=== PATIENT | female | born 1975 | race African-American/Black ===

== ENCOUNTER → 2016-11-28 | Outpatient (CLI) | payer OTHER ==
[~2016-11-28] VITALS: Ht 162.6 cm; Wt 141.5 kg
[~2016-11-28] MED LIST: BIOT1000 PO; BUPR1TAB29 PO; CHLORHEXIDINE GLUCONATE 2 % 1 PACK (2 CLOTHS) TOPICAL PRN; CHOL5000 PO; FISH1000 PO; FLUT1SPR22 EACH NARE; FLUT50SP EACH NARE; IBUP-232 PO; INSULIN HUMAN REGULAR 1,000 UNITS/10 ML VIAL SQ PRN; LACTATED RINGER'S 1000 ML IV PRN; METOPROLOL TARTRATE 25 MG TAB PO PRN; MULT1TAB84 PO; MULTTAB67 PO; NAPR500T PO; OXYC-360 PO; POLYDRO3 PO; POVIDONE IODINE 5% (ANTISEPSIS KIT) 4 APPLICATIONS EACH NARE PRN; PROPOFOL 200 MG/20 ML AMP IV ONE; SODIUM CHLORID 0.9% 500 ML IV PRN; VITA10004 SL; VITA250T3 PO; VITA500030 CHEW; VITA500C9 CHEW; Z.0.BCPILL PO
[2016-11-28 08:23] VITALS: BP 139/77; PULSE 71; RESP 20; TEMP 98.2; O2SAT 98
[2016-11-28 10:25] VITALS: TEMP 98.4
--- NOTE | 2016-11-28 10:36 | GIPROC ---
[facility] [address] [facility]. [facility], [id number] EGD PROCEDURE REPORT EXAM DATE: 11/28/2016 PATIENT NAME: Citlali Page MR #: [id number] BIRTHDATE: 1975 ATTENDING: Kehinde Bynum MD ORDER #: [id number] [place] MAN: Christopher Reyes and Richard Orr STATUS: outpatient INDICATIONS: The patient is a 41 yr old female here for an EGD due to history of esophageal reflux and Preoperative assessment PROCEDURE PERFORMED: EGD w/ biopsy MEDICATIONS: None and Per Anesthesia. TOPICAL ANESTHETIC: CONSENT: The patient understands the risks and benefits of the procedure and understands that these risks include, but are not limited to: sedation, allergic reaction, infection, perforation and/or bleeding. Alternative means of evaluation and treatment include, among others: physical exam, x-rays, and/or surgical intervention. The patient elects to proceed with this endoscopic procedure. medical equipment was checked for proper function. Hand hygiene and appropriate measures for infection prevention was taken. After the risks, benefits and alternatives of the procedure were thoroughly explained, Informed consent was verified, confirmed and timeout was successfully executed by the treatment team. The patient was anesthetized with topical anesthesia and the Pentax [id number] endoscope was introduced through the mouth and advanced to the second portion of the duodenum. Retroflexed views revealed no abnormalities The gastroscope was then slowly withdrawn and removed. STOMACH: There was mild gastritis in the gastric antrum. Multiple biopsies were performed. The endoscopy was otherwise normal. ADVERSE EVENTS: There were no complications. IMPRESSIONS: 1. There was mild gastritis in the gastric antrum; multiple biopsies were performed 2. Normal endoscopy otherwise 3. Retroflexed views revealed no abnormalities RECOMMENDATIONS: 1. Await biopsy results. Biopsy results will not be ready for 7-10 days. If you don't hear from us in two weeks, call our office for biopsy results. 2. Avoid NSAIDS 3. Follow-up: GI clinic PRN 4. If biopsy neg ok to proceed with bariatric PATIENT CONDITION: stable DISPOSITION: Home REPEAT EXAM: Kehinde Bynum MD eSigned: Kehinde Bynum MD 11/28/2016 10:36 AM cc:
[2016-11-28 10:45] VITALS: BP 125/75; PULSE 80; RESP 16; O2SAT 100
== END ==
LOC: HEND 07:37
PROVIDERS: ATTEND Internal Medicine Gastroenterology
DX: Z01.818 Encounter for other preprocedural examination (principal); K29.50 Unspecified chronic gastritis without bleeding; K21.9 Gastro-esophageal reflux disease without esophagitis
CPT/HCPCS: 00740; 43239; 88305; 88312; J7120

== ENCOUNTER 2017-02-04 15:21 | Inpatient (IN) | payer OTHER ==
[~2017-02-04] VITALS: Ht 162.6 cm; Wt 140.0 kg
[~2017-02-04 15:21] MED LIST changes: -BUPR1TAB29 PO; -CHLORHEXIDINE GLUCONATE 2 % 1 PACK (2 CLOTHS) TOPICAL PRN; -FISH1000 PO; -FLUT1SPR22 EACH NARE; -INSULIN HUMAN REGULAR 1,000 UNITS/10 ML VIAL SQ PRN; -LACTATED RINGER'S 1000 ML IV PRN; -METOPROLOL TARTRATE 25 MG TAB PO PRN; -MULT1TAB84 PO; -OXYC-360 PO; -POLYDRO3 PO; -POVIDONE IODINE 5% (ANTISEPSIS KIT) 4 APPLICATIONS EACH NARE PRN; -PROPOFOL 200 MG/20 ML AMP IV ONE; -SODIUM CHLORID 0.9% 500 ML IV PRN; -VITA500030 CHEW; -VITA500C9 CHEW; -Z.0.BCPILL PO
[2017-02-05] MEDS ORDERED: METOPROLOL TARTRATE 25 MG TAB PO PRN (05:45)
[2017-02-05] MEDS ORDERED: SODIUM CHLORID 0.9% 500 ML IV PRN (05:45)
[2017-02-05] MEDS ORDERED: LACTATED RINGER'S 1000 ML IV PRN (05:45)
[2017-02-05] MEDS ORDERED: metroNIDAZOLE 500 MG INJ 100 ML IV SCH (05:45)
[2017-02-05] MEDS ORDERED: ceFAZolin 2 GM PREMIX 50 ML IV SCH (05:45)
[2017-02-05] MEDS ORDERED: INSULIN HUMAN REGULAR 1,000 UNITS/10 ML VIAL SQ PRN (05:45)
[2017-02-05] MEDS ORDERED: POVIDONE IODINE 5% (ANTISEPSIS KIT) 4 APPLICATIONS EACH NARE PRN (05:45)
[2017-02-05] MEDS ORDERED: SCOPOLAMINE 1.5 MG PATCH T-DERMAL SCH (05:45)
[2017-02-05] MEDS ORDERED: APREPITANT 40 MG CAP PO SCH (05:45)
[2017-02-05] MEDS ORDERED: ONDANSETRON HCL 4 MG/2 ML VIAL IV PUSH SCH (05:45)
[2017-02-05] MEDS ORDERED: ACETAMINOPHEN 1000 MG/100 ML VIAL IV SCH (05:45)
[2017-02-05] MEDS ORDERED: CHLORHEXIDINE GLUCONATE 2 % 1 PACK (2 CLOTHS) TOPICAL PRN (05:45)
[2017-02-05 06:50] VITALS: BP 114/71; PULSE 61; RESP 20; TEMP 97.5; O2SAT 100
[2017-02-05] MEDS ORDERED: FAMOTIDINE 20 MG/2 ML VIAL ONE (08:00)
[2017-02-05] MEDS ORDERED: fentaNYL CITRATE 250 MCG/5 ML AMP ONE ×2 (08:00→10:07)
[2017-02-05] MEDS ORDERED: MIDAZOLAM HCL 2 MG/2 ML VIAL ONE (08:00)
[2017-02-05] MEDS ORDERED: SUGAMMADEX SODIUM 200 MG/2 ML VIAL IV PUSH ONE ×2 (08:00)
[2017-02-05] MEDS ORDERED: BUPIVACAINE/EPINEPHRINE 0.25% 50 ML VIAL INFIL ONE (08:36)
[2017-02-05] MEDS ORDERED: METHYLENE BLUE 100 MG/10 ML VIAL OTHER ONE (08:36)
[2017-02-05] MEDS ORDERED: diphenhydrAMINE HCL 50 MG/ML VIAL IV PRN (09:30)
[2017-02-05] MEDS ORDERED: SODIUM CHLORIDE 0.9% FLUSH 10 ML FLUSH IV FLUSH PRN (09:30)
[2017-02-05] MEDS ORDERED: ENALAPRILAT 1.25 MG/ML VIAL IV PUSH PRN (09:30)
[2017-02-05] MEDS ORDERED: diphenhydrAMINE HCL ELIXIR 12.5 MG/5 ML CUP PO PRN (09:30)
[2017-02-05] MEDS ORDERED: MORPHINE SULFATE 30 MG/30 ML PCA IV SCH (09:30)
[2017-02-05] MEDS ORDERED: ACETAMINOPHEN 325MG/HYDROcodone 7.5MG/15ML UDC PO PRN ×2 (09:30)
[2017-02-05] MEDS ORDERED: NALOXONE HCL 0.4 MG/ML AMP IV PRN (09:30)
[2017-02-05] MEDS ORDERED: ONDANSETRON HCL 4 MG/2 ML VIAL IV PRN (09:30)
[2017-02-05] MEDS ORDERED: Post-op Orders (for Pharmacy) MISC OTHER ONE (09:54)
[2017-02-05] MEDS: D5-1/2 NS + KCL 20 MEQ INJ 1,000 ML IV SCH ×4 (10:00→23:20)
[2017-02-05] MEDS ORDERED: DO NOT ADM ANY ANTICOAGULANT DRUGS PRN (10:30)
[2017-02-05] MEDS ORDERED: *morphine SULFATE 8 MG/ML PERIprocedure ONLY ONE (10:44)
[2017-02-05] MEDS ORDERED: *LABETALOL HCL 100 MG/20 ML VIAL PERIprocedural Use ONLY ONE (10:50)
[2017-02-05] MEDS: METOCLOPRAMIDE HCL 10 MG/2 ML VIAL IV PUSH SCH ×3 (11:00→23:46)
[2017-02-05] MEDS ORDERED: PROPOFOL 200 MG/20 ML AMP IV ONE (12:00)
[2017-02-05] MEDS ORDERED: ONDANSETRON HCL 4 MG/2 ML VIAL IV PUSH ONE (12:00)
[2017-02-05] MEDS ORDERED: LACTATED RINGER'S 1000 ML INJ 1,000 ML IV ONE (12:00)
[2017-02-05] MEDS: RESP: ALBUTEROL 2.5 MG/3 ML NEB (SCH) INH ×4 (12:00→23:37)
[2017-02-05 14:00] VITALS: BP 104/51; PULSE 62; RESP 17; TEMP 97.9; O2SAT 98
[2017-02-05] MEDS: PCA - TOTAL MG MORPHINE DELIVERED PER SHIFT SCH ×2 (14:00→21:41)
[2017-02-05] MEDS: ENOXAPARIN SODIUM 40 MG/0.4 ML SYRINGE SQ SCH (14:35)
[2017-02-05] MEDS: metroNIDAZOLE 500 MG INJ 100 ML IV SCH ×2 (15:10→23:46)
[2017-02-05 15:43] VITALS: O2SAT 96
[2017-02-05 16:00] VITALS: BP 124/58; PULSE 73; RESP 16; TEMP 96.5; O2SAT 98
[2017-02-05 19:45] VITALS: O2SAT 97
[2017-02-05 20:00] VITALS: BP 102/50; PULSE 67; RESP 20; TEMP 98.2; O2SAT 97
[2017-02-05] MEDS: SODIUM CHLORIDE 0.9% FLUSH 10 ML FLUSH IV FLUSH SCH (21:00)
[2017-02-06] VITALS: BP 118/57; PULSE 81; RESP 22; TEMP 98.4; O2SAT 96
[2017-02-06] MEDS: D5-1/2 NS + KCL 20 MEQ INJ 1,000 ML IV SCH ×3 (02:17→08:18)
[2017-02-06] MEDS: RESP: ALBUTEROL 2.5 MG/3 ML NEB (SCH) INH ×3 (03:56→11:15)
[2017-02-06 04:00] VITALS: BP 115/53; PULSE 61; RESP 22; TEMP 98.5; O2SAT 99
[2017-02-06 05:21] LABS: AUTOMATED NEUTROPHIL # 6.8 TH/MM3 (1.8-7.7); BASOPHIL % 0.2 % (0.0-2.0); EOSINOPHIL % 0.1 % (0.0-4.0); HEMATOCRIT 32.1 % (35.0-46.0); HEMO FLAGS DIFF FINAL; LYMPH % 31.1 % (9.0-44.0); LYMPHOCYTE # 3.4 TH/MM3 (1.0-4.8); MEAN CELL VOLUME 86.9 FL (80.0-100.0); MEAN CORPUSCULAR HEMOGLOBIN 27.9 PG (27.0-34.0); MONO % 5.7 % (0.0-8.0); NEUT % 62.9 % (16.0-70.0); PLATELET COUNT 223 TH/MM3 (150-450); RED CELL DISTRIBUTION WIDTH 13.7 % (11.6-17.2); WHITE BLOOD COUNT 10.8 TH/MM3 (4.0-11.0)
[2017-02-06 05:41] LABS: BICARBONATE 26.2 MEQ/L (21.0-32.0); MAGNESIUM 2.1 MG/DL (1.5-2.5); POTASSIUM 3.5 MEQ/L (3.5-5.1)
[2017-02-06] MEDS: METOCLOPRAMIDE HCL 10 MG/2 ML VIAL IV PUSH SCH (05:45)
[2017-02-06] MEDS: metroNIDAZOLE 500 MG INJ 100 ML IV SCH (05:45)
[2017-02-06] MEDS: PCA - TOTAL MG MORPHINE DELIVERED PER SHIFT SCH ×2 (05:49→14:00)
[2017-02-06 08:00] VITALS: BP 119/57; PULSE 64; RESP 18; TEMP 99.9; O2SAT 98
[2017-02-06 08:07] VITALS: O2SAT 100
[2017-02-06] MEDS: SODIUM CHLORIDE 0.9% FLUSH 10 ML FLUSH IV FLUSH SCH (08:17)
[2017-02-06] MEDS ORDERED: PANTOPRAZOLE SOD 40 MG DELAYED RELEASE TAB PO SCH (09:00)
[2017-02-06] MEDS ORDERED: METOCLOPRAMIDE HCL 10 MG/2 ML VIAL IV PUSH PRN (09:30)
[2017-02-06] MEDS ORDERED: PNEUMOCOCCAL POLYVALENT INJ 25 MCG/0.5 ML SYR IM ONE (10:00)
--- NOTE | 2017-02-06 11:49 | HHI.PR ---
Subjective Subjective Notes 41yo female POD# 1 VSG. Sitting up in chair in no acute distress. Tolerating fluids Objective Vitals/I&O Vital Signs Date Time Temp Pulse Resp B/P Pulse Ox O2 Delivery O2 Flow Rate FiO2 02/06/17 08:07 100 21 02/06/17 08:00 99.9 64 18 119/57 02/05/17 13:00 Nasal Cannula 2 Labs Laboratory Tests Test 02/06/17 04:30 White Blood Count 10.8 Red Blood Count 3.70 Hemoglobin 10.3 Hematocrit 32.1 Mean Corpuscular Volume 86.9 Mean Corpuscular Hemoglobin 27.9 Mean Corpuscular Hemoglobin 32.0 Concent Red Cell Distribution Width 13.7 Platelet Count 223 Mean Platelet Volume 11.3 Neutrophils (%) (Auto) 62.9 Lymphocytes (%) (Auto) 31.1 Monocytes (%) (Auto) 5.7 Eosinophils (%) (Auto) 0.1 Basophils (%) (Auto) 0.2 Neutrophils # (Auto) 6.8 Lymphocytes # (Auto) 3.4 Monocytes # (Auto) 0.6 Eosinophils # (Auto) 0.0 Basophils # (Auto) 0.0 CBC Comment DIFF FINAL Differential Comment Sodium Level 140 Potassium Level 3.5 Chloride Level 105 Carbon Dioxide Level 26.2 Anion Gap 9 Blood Urea Nitrogen 7 Creatinine 0.71 Estimat Glomerular Filtration 109 Rate Random Glucose 141 Calcium Level 8.8 Magnesium Level 2.1 Cardiovascular: Regular Lungs: Clear Abdomen: Post-op tenderness Extremities: Perfused Wound Wound : Wound Location: Abdomen Appearance: Clean & Dry A/P Assessment and Plan Continue to increase fluids as tolerated Continue with frequent ambulation The exam, history, and the medical decision-making described in the above note were completed with the assistance of the mid-level provider. I reviewed and agree with the findings presented. I attest that I had a [id number] encounter with the patient on the same day, and personally performed and documented my assessment and findings in the medical record. Discharge Planning D/C home today Akira Carter Feb 06, 2017 11:49 Adonis Del Castillo MD Feb 25, 2017 11:14
[2017-02-06 12:00] VITALS: BP 135/63; PULSE 73; RESP 18; TEMP 99.1; O2SAT 98
[2017-02-06 14:00] VITALS: RESP 14
[2017-02-06] MEDS: ENOXAPARIN SODIUM 40 MG/0.4 ML SYRINGE SQ SCH (14:00)
--- NOTE | 2017-02-27 23:29 | MP ---
cc: KERRY DEL CASTILLO M.D. DATE OF 1975 DATE OF OPERATION 02/05/2017 PREOPERATIVE DIAGNOSIS Morbid obesity with a BMI of 53 POSTOPERATIVE DIAGNOSIS Morbid obesity with a BMI of 53 PROCEDURE Laparoscopic vertical sleeve gastrectomy over a 36-German ViSiGi bougie. SURGEON Ghada Del Castillo MD FLAME CUTTING MACHINE OPERATOR HELPER Leandra Barajas MD ANESTHESIA General endotracheal anesthesia ESTIMATED BLOOD LOSS Scant FINDINGS Fatty liver SPECIMENS None COMPLICATIONS None PROCEDURE IN DETAIL The patient was brought to the operating room and placed on the operating table in supine position, bilateral sequential inflation device placed on lower extremities. General anesthesia was instituted. Antibiotics was initiated. The abdomen was prepped and draped sterilely. A point 15 cm distal to the xiphoid in the midline was anesthetized with 0.25% Marcaine with epinephrine. A skin incision was made, 5-mm OptiView port placed under direct vision and pneumoperitoneum created. Under direct vision, three 5-mm left upper quadrant, a 15-mm right upper quadrant, 5-mm right upper quadrant ports placed. Prior to placement of all ports the skin and peritoneum were anesthetized with 0.25% Marcaine with epinephrine. The patient was placed in reverse Trendelenburg position left side up, the Lizeth-Flex retractor was placed. The left lobe of the liver was retracted. The vasculature along the greater curvature of the stomach was using harmonic scalpel starting a distance 5-cm proximal to the pylorus and carried towards the angle of His. The angle of His was taken down bluntly. Posterior ligamentous attachments were sharply . A 36-German ViSiGi bougie was placed at the start of the case, was placed on suction. Division of the stomach started 5 cm proximal to the pylorus and carried towards the angle of His to completely excise approximately 80% of the stomach. This was performed using an [place] Flex stapler at the pylorus. The first firing was with a black load, followed by a green load and four gold loads. All staple loads were reinforced with SeamGuard. A distance of 2 cm was left from the angle incisura and the staple line and a distance of 1 cm left from the GE junction and the staple line. The pylorus was then occluded, methylene blue tinged saline was instilled. There was no evidence of extravasation. The gastrocolic ligament was then sutured to the posterior leaflet of the SeamGuard using a 2-0 Vicryl suture in a running manner. Bleeding points were controlled with Evicel. The excised stomach was removed from the peritoneal cavity through the 15-mm port site in an Endopouch. The fascia at the 15-mm port site was approximated with 0 Vicryl suture. The CO2 was then released, all ports were removed, all skin incisions closed with 4-0 Monocryl. The abdominal wall was cleaned. A sterile dressing was placed. The patient was awakened and taken to the recovery room. MD PATRIA Nova/ /1:42 PM /11:21 PM
== END 2017-02-06 14:10 | disposition home or self-care (01) | DRG 621 ==
LOC: HSDI 02-05 05:12 → N07B 02-05 13:24
PROVIDERS: ADMIT Surgery; ATTEND Surgery
PROC: 0DB64Z3 Excision of Stomach, Percutaneous Endoscopic Approach, Vertical (ICD-10-PCS; principal; 2017-02-05 08:04)
DX: E66.01 Morbid (severe) obesity due to excess calories (principal); G47.30 Sleep apnea, unspecified; K21.9 Gastro-esophageal reflux disease without esophagitis; Z68.43 Body mass index [BMI] 50.0-59.9, adult; Z23 Encounter for immunization
CPT/HCPCS: 80048; 83735; 85025; 90732; 94150; 94640; 94664; J0131; J0690; J1650; J2250; J2270; J2405; J2765; J3010; J3480; J7120; J7613; J8501

== ENCOUNTER 2017-09-30 07:58 | Observation (INO) | payer OTHER ==
[~2017-09-30] VITALS: Ht 162.6 cm; Wt 105.0 kg
[~2017-09-30 07:58] MED LIST changes: -CHOL5000 PO; -IBUP-232 PO; -MULTTAB67 PO; -NAPR500T PO; -VITA10004 SL; -VITA250T3 PO
[2017-09-30] MEDS ORDERED: DOCU50CA5 (08:34)
[2017-09-30] MEDS ORDERED: CYAN1TAB24 PO (08:36)
[2017-09-30] MEDS ORDERED: MULTTAB67 PO (08:36)
[2017-09-30 09:14] LABS: AUTOMATED NEUTROPHIL # 1.7 TH/MM3 (1.8-7.7); BASOPHIL % 0.6 % (0.0-2.0); EOSINOPHIL # 0.2 TH/MM3 (0-0.4); EOSINOPHIL % 5.2 % (0.0-4.0); HEMATOCRIT 33.5 % (35.0-46.0); LYMPH % 44.2 % (9.0-44.0); LYMPHOCYTE # 1.8 TH/MM3 (1.0-4.8); MEAN CELL VOLUME 86.2 FL (80.0-100.0); MEAN CORPUSCULAR HEMOGLOBIN 28.4 PG (27.0-34.0); MEAN PLATELET VOLUME 11.4 FL (7.0-11.0); MONO % 7.5 % (0.0-8.0); MONOCYTE # 0.3 TH/MM3 (0-0.9); NEUT % 42.5 % (16.0-70.0); PLATELET COUNT 199 TH/MM3 (150-450); RED BLOOD COUNT 3.88 MIL/MM3 (4.00-5.30); RED CELL DISTRIBUTION WIDTH 14.3 % (11.6-17.2); WHITE BLOOD COUNT 4.1 TH/MM3 (4.0-11.0)
[2017-09-30] MEDS ORDERED: METOPROLOL TARTRATE 25 MG TAB PO PRN (09:30)
[2017-09-30] MEDS ORDERED: POVIDONE IODINE 5% (ANTISEPSIS KIT) 4 APPLICATIONS EACH NARE PRN (09:30)
[2017-09-30] MEDS ORDERED: CHLORHEXIDINE GLUCONATE 2 % 1 PACK (2 CLOTHS) TOPICAL PRN (09:30)
[2017-09-30] MEDS ORDERED: INSULIN HUMAN REGULAR 1,000 UNITS/10 ML VIAL SQ PRN (09:30)
[2017-09-30] MEDS ORDERED: LACTATED RINGER'S 1000 ML IV PRN (09:30)
[2017-09-30] MEDS ORDERED: SODIUM CHLORID 0.9% 500 ML IV PRN (09:30)
[2017-09-30] MEDS ORDERED: ACETAMINOPHEN 1000 MG/100 ML 100 ML IV ONE (10:52)
[2017-09-30] MEDS ORDERED: BUPIVACAINE/EPINEPHRINE 0.5% PF 30 ML VIAL ONE (10:54)
[2017-09-30] MEDS ORDERED: DO NOT ADM ANY ANTICOAGULANT DRUGS PRN (13:30)
[2017-09-30] MEDS ORDERED: MIDAZOLAM HCL 2 MG/2 ML VIAL ONE (13:39)
--- NOTE | 2017-09-30 13:42 | PD.OP ---
Operative Report Date of Surgery: Sep 30, 2017 Preoperative Diagnosis: (1) Left ovarian cyst Postoperative Diagnosis: (1) Left ovarian cyst Procedure: operative laparoscopy with lso Anesthesia: general Surgeon: Vahid Montez Canvas Worker(s): Vahid Solano MD Sep 30, 2017 13:41
[2017-09-30] MEDS ORDERED: oxyCODONE/ACETAMINOPHEN 5 MG/325 MG TAB PO PRN ×2 (13:45)
[2017-09-30] MEDS ORDERED: *morphine SULFATE 10 MG/ML PERIprocedure ONLY ONE (13:56)
[2017-09-30 15:26] VITALS: BP 104/43; PULSE 61; RESP 16; TEMP 97.8; O2SAT 97
[2017-09-30 20:00] VITALS: BP 121/72; PULSE 92; RESP 18; TEMP 98.6; O2SAT 98
[2017-10-01] VITALS: BP 107/57; PULSE 63; RESP 18; TEMP 99.5
[2017-10-01 04:14] VITALS: BP 108/58; PULSE 69; RESP 18; TEMP 98.1
[2017-10-01 05:56] LABS: HEMATOCRIT 27.8 % (35.0-46.0); HEMOGLOBIN 9.6 GM/DL (11.6-15.3); MEAN CELL VOLUME 85.5 FL (80.0-100.0); MEAN CORPUSCULAR HEMOGLOBIN 29.5 PG (27.0-34.0); MEAN CORPUSCULAR HGB CONC 34.5 % (32.0-36.0); MEAN PLATELET VOLUME 10.6 FL (7.0-11.0); PLATELET COUNT 199 TH/MM3 (150-450); RED BLOOD COUNT 3.25 MIL/MM3 (4.00-5.30); RED CELL DISTRIBUTION WIDTH 13.9 % (11.6-17.2); WHITE BLOOD COUNT 6.6 TH/MM3 (4.0-11.0)
[2017-10-01 08:12] VITALS: BP 108/58; PULSE 71; RESP 18; TEMP 98.2; O2SAT 97
--- NOTE | 2017-10-01 08:37 | HHI.OB ---
Subjective Post Operative Day: 1 Remarks doing well Objective Vitals/I&O Vital Signs Date Time Temp Pulse Resp B/P (MAP) Pulse Ox O2 Delivery O2 Flow Rate FiO2 10/01/17 08:12 98.2 71 18 108/58 (75) 97 10/01/17 04:14 98.1 69 18 108/58 (75) 10/01/17 00:00 99.5 63 18 107/57 (74) 09/30/17 22:30 18 09/30/17 20:00 98.6 92 18 121/72 (88) 98 09/30/17 15:26 97.8 61 16 104/43 (63) 97 09/30/17 14:30 98.5 56 16 119/59 (79) 100 Room Air 09/30/17 14:15 55 16 120/60 (80) 98 Room Air 09/30/17 14:01 15 09/30/17 14:00 54 15 116/59 (78) 98 Room Air 09/30/17 13:45 58 14 119/58 (78) 100 Nasal Cannula 2 09/30/17 13:30 98.5 65 12 125/57 (79) 100 Nasal Cannula 3 09/30/17 08:47 98.9 56 18 136/64 (88) 99 Intake & Output 10/01/17 10/01/17 07:00 19:00 Intake Total 600 ml Output Total 600 ml Balance 0 ml Intake Oral 600 ml Output Urine Total 600 ml Result Diagram: 10/01/17 0517 Objective Remarks GENERAL: Well-nourished, well-developed patient. ABDOMEN/GI: Abdomen soft, non-tender, bowel sounds present. Incision: Clean, dry and intact. Fundus: Firm, non-tender at umbilicus. GENITOURINARY: Light to moderate bleeding. EXTREMITIES: No cyanosis or edema, non-tender, without signs of DVT. Medications and IVs Current Medications Medications (Trade) Dose Ordered Sig/Flako Route Start Time Stop Time Status Last Admin Lactated Ringer's 1,000 ml @ 30 mls/hr Q24H PRN IV 09/30/17 09:30 10/03/17 09:29 Sodium Chloride 500 ml @ 30 mls/hr [id number] PRN IV 09/30/17 09:30 10/03/17 09:29 (Lopressor) 25 mg OFFICE ANALYST PRN PO 09/30/17 09:30 10/03/17 09:29 (Betadine 5% Antisepsis Kit) 1 applic OFFICE ANALYST PRN EACH NARE 09/30/17 09:30 10/03/17 09:29 (Chlorhexidine 2% Cloth) 3 pack OFFICE ANALYST PRN TOPICAL 09/30/17 09:30 10/03/17 09:29 (NovoLIN R INJ) See Protocol Table ... OFFICE ANALYST PRN SQ 09/30/17 09:30 10/03/17 09:29 (Percocet 5-325 Mg) 2 tab Q4H PRN PO 09/30/17 13:45 (Percocet 5-325 Mg) 1 tab Q4H PRN PO 09/30/17 13:45 09/30/17 21:32 Miscellaneous Information ALL NURSING DEPARTME... UNSCH PRN .XX 09/30/17 13:30 10/01/17 13:29 Assessment/Plan Problem List: (1) Left ovarian cyst ICD Codes: N83.202 - Unspecified ovarian cyst, left side Vahid Montez MD Oct 01, 2017 08:37
[2017-10-01] MEDS ORDERED: OXYC1TAB63 PO (08:38)
--- NOTE | 2017-10-01 08:38 | HHI.DCPOC ---
Discharge Care Plan Diagnosis: (1) Left ovarian cyst Report Symptoms to Your Doctor -Temperature above 100.5 degrees -Redness, of incision or excessive or foul smelling drainage -Unusual pain or calf pain -Increased vaginal bleeding -Painful or difficulty urinating -Feelings of extreme sadness or anxiety after 2 weeks Goals to Promote Your Health * To prevent worsening of your condition and complications * To maintain your health at the optimal level Directions to Meet Your Goals Take your medications as prescribed Follow your dietary instruction Follow activity as directed Ensure plenty of rest for recovery Drink fluids for hydration Keep your appointments as scheduled Take your immunizations and boosters as scheduled If your symptoms worsen call your PCP, if no PCP go to Urgent Care Center or Emergency Room Smoking is Dangerous to Your Health. Avoid second hand smoke Call the 24-hour crisis hotline for domestic abuse at Vahid Montez MD Oct 01, 2017 08:38
--- NOTE | 2017-10-01 08:42 | HHI.DS ---
Admission Date Sep 30, 2017 at 13:39 Discharge Date: Oct 01, 2017 Admitting Diagnosis Diagnosis: (1) Left ovarian cyst Diagnosis: Principal ICD Codes: N83.202 - Unspecified ovarian cyst, left side Brief History 41 yo with 11 cm ovarian cyst, Hospital Course Patient under went extensive adhesiolysis of 11 cm left ovarian cyst and dissection from bowel and bladder, she is doing well and ready for DC. Hgb stable Pt Condition on Discharge: Good Discharge Disposition: Discharge Home Discharge Instructions Diet Instructions: As Tolerated, No Restrictions Activities You Can Perform: Pelvic Rest Activities to Avoid: Sexual Activity Follow up Referrals: HAIRSPRING ASSEMBLER - 2 Weeks @ [facility] with Vahid Montez MD New Medications: Oxycodone HCl/Acetaminophen (Oxycodone-Acetaminophen 5-325) 5 Mg-325 Mg Tablet 2 TAB PO Q4H PRN for pain 6-10, #30 TAB 0 Refills Continued Medications: Biotin (Biotin) 1,000 Mcg Tab 1000 MG PO DIRECTED, #1 BOTTLE Cyanocobalamin (B12) 1,000 Mcg Tab 1000 MCG PO DAILY Docusate Sodium (Stool Softener) 50 Mg Capsule Fluticasone Nasal [place] (Fluticasone Nasal [place]) 50 Mcg/Act Naspr 100 MCG EACH NARE BID for Allergy Management, #1 BOTTLE 0 Refills 50 mcg/spray Multiple Vitamin (Multiple Vitamin) 1 Tab 1 TAB PO DAILY for Nutritional Supplement, TAB 0 Refills Vahid Montez MD Oct 01, 2017 08:42
--- NOTE | 2017-10-01 10:45 | MP ---
cc: GLENDY MONTEZ M.D. DATE OF SURGERY: 09/30/2017 PROCEDURE Operative laparoscopy with left salpingo-oophorectomy, lysis of adhesion. PREOPERATIVE DIAGNOSIS 10 cm left ovarian cyst. POSTOPERATIVE DIAGNOSIS Endometriosis, left ovarian cyst, dense adhesions of bowel and bladder to the ovary. SURGEON Dr. Glendy Montez, assisted by BRIDGET Barraza ESTIMATED BLOOD LOSS 200 ccs. ANESTHESIA General. PROCEDURE IN DETAIL After informed consent the patient was taken to the operating room. She was placed under general anesthesia, placed in supine position, bladder being drained prior to entering the operating room. After adequate anesthesia was assured, time-out was taken and the umbilicus was injected with 0.25% Marcaine with epinephrine. We entered the abdomen under direct visualization. We insufflated the abdomen. A large ovarian cyst which filled the pelvis was seen, all the way to the right pelvic sidewall. At this point a second trocar was placed above the umbilicus approximately 10 cm through a previous scar from her gallbladder for better visualization, left lower quadrant 5-mm suprapubic 10 mm was inserted. All injected with 0.25% Marcaine before entering. We then proceeded to dissect the ovary out which was about 80% adherent to pelvic sidewall, bowel and bladder, most of these adhesions were dense, although there was some filmy areas that we dissected with hydrodissection. By using a Harmonic scalpel we dissected out the ovary, there was a raw surface which oozed slightly. We identified the blood vessel at the 7 o'clock portion on the ovary. This was taken with a Harmonic scalpel. Good hemostasis was achieved at that pedicle. We continue to dissect the ovary carefully. We eventually drained the cystic mass for visualization purposes which was 500 ccs of dark bloody chocolate cyst. We had two other areas that were filled with dark fluid. These were all drained. There was hydrosalpinx also. Once the ovary was completely dissected away the posterior cyst wall had to dissected out of the posterior cul-de-sac. This was taken out at the end of the procedure. Good hemostasis had been achieved. The ovary was placed in the bag and pulled through the suprapubic incision. The incision was closed, re-insufflated and good hemostasis was achieved except for just slight ooze in a generalized area of the bowl and the posterior cul-de-sac where the dissection had occurred. Omer of 3 grams were placed in this area, good hemostasis was observed and the procedure was ended. The patient will stay overnight for observation about bleeding and the urine output. Ureter was not visualized secondary to scar tissue but we carefully dissected off the pelvic sidewall avoiding injury and there was no dissection on the right side. The patient tolerated the procedure well. All instruments were removed. The suprapubic area had been closed with subcuticular stitch and the fascia was closed with #1 Vicryl suture. The 5-mm trocar sites #3 were closed. The patient tolerated the procedure well. She was taken to the recovery room in stable condition after being awakened. MD TRENTON Abreu/ARIN /1:41 PM /10:21 AM
== END 2017-10-01 09:20 | disposition home or self-care (01) ==
LOC: HSDC 07:58 → HSDI 13:39 → H1EA 14:40
PROVIDERS: ADMIT Obstetrics & Gynecology; ATTEND Obstetrics & Gynecology
DX: N83.202 Unspecified ovarian cyst, left side (principal); N80.1 Endometriosis of ovary; K66.0 Peritoneal adhesions (postprocedural) (postinfection); N70.11 Chronic salpingitis; E66.9 Obesity, unspecified; Z68.39 Body mass index [BMI] 39.0-39.9, adult; Z98.51 Tubal ligation status
CPT/HCPCS: 00840; 58661; 85025; 85027; 88305; G0378; J0131; J2250; J2270; J3010